=== PATIENT | female | born 1950 | race Caucasian/White ===

== ENCOUNTER 2016-05-28 11:50 | Outpatient (CLI) | payer OTHER ==
[2016-05-28] MEDS ORDERED: FLUMAZENIL 0.5 MG/5 ML MDV IVP ONE (12:28)
[2016-05-28] MEDS ORDERED: MIDAZOLAM 2 MG/2 ML VIAL ONE ×2 (12:28→13:10)
--- NOTE | 2016-05-28 15:01 | MR ---
MRI of the Lumbar Spine (Without Contrast) with intravenous moderate conscious sedation Clinical Indications: Low back pain with radiculopathy, M54.16, left L5-S1 radiculopathy. Intravenous moderate sedation: After witnessed informed consent was obtained. Moderate sedation was p erformed with the uneventful intravenous administration of Versed 4.5 mg over 38 minutes, [id number] hours, under the supervision of the radiology nurse and consenting radiologist. No immediate complica tions. Technique: Sagittal and axial T1 and T2 and sagittal STIR MR sequences of the lumbar spine without co ntrast. Axial imaging from T11 through S1. Findings: Lumbar vertebral bodies are of normal height without compression fractures. Conus medulla ris appears normal and ends at L1. T11-T12: Moderate degenerative disk disease with ventral osteophytes. No disk herniation or stenosis. T12-L1: Moderate degenerative disk disease with ventral osteophytes. No disk herniation or stenosis.. L1-L2: Moderate degenerative disk disease with a right paramedian 3-mm disk herniation, extrusion, mi grating cephalad and mild bilateral facet arthropathy resulting in mild central canal stenosis withou t neural foraminal stenosis. L2-L3: Moderate degenerative disk disease with circumferential disk bulge and osteophytes resulting i n minimal central canal stenosis without neural foraminal stenosis. L3-L4: Moderate degenerative disk disease with Schmorl's nodes, broad-based central 3-mm disk herniat ion, protrusion, slightly more prominent towards the right and mild bilateral facet arthropathy resul ting in mild central canal stenosis, and slight dorsal displacement of the right L4 nerve root. No ne ural foraminal stenosis. L4-L5: Severe degenerative disk disease with severe loss of disk height, previous posterior laminecto my, residual circumferential osteophytes and mild bilateral facet arthropathy resulting in mild bilat eral neural foraminal stenosis without central canal stenosis. L5-S1: No disk herniation or stenosis. Impression: 1. L4-L5: Previous posterior laminectomy with severe degenerative disk disease and circumferential os teophytes resulting in mild bilateral neural foraminal stenosis without central canal stenosis. 2. L5-S1: No disk herniation or stenosis. 3. L1-L2: Right paramedian disk herniation, extrusion, and mild bilateral facet arthropathy resulting in mild central canal stenosis 4. L3-L4: Broad-based disk herniation, protrusion, and mild bilateral facet arthropathy resulting in mild central canal stenosis. 5. Please see above findings at specific disk levels.
== END 2016-05-28 14:31 | disposition home or self-care (01) ==
LOC: FIMAGING 11:50
PROVIDERS: ATTEND Physical Medicine & Rehabilitation
DX: M51.16 Intervertebral disc disorders with radiculopathy, lumbar region (principal); M54.5 Low back pain; M79.671 Pain in right foot
CPT/HCPCS: 72148; 99152; 99513; J2250

== ENCOUNTER 2016-05-31 10:55 | Emergency (ER) | payer OTHER ==
--- NOTE | 2016-05-31 11:47 | EDPHY ---
H & P Stated Complaint: 1 wk transient floaters in r eye Time Seen by Provider: 05/31/16 11:09 HPI/ROS: CHIEF COMPLAINT: right eye floaters HISTORY OF PRESENT ILLNESS: 65-year-old female presents to the emergency department complaining of floaters in her right eye for the last 3 days. Patient states today prior to arrival she had flashes of lights in her right eye lateral periphery and dark flashes. These lasted for about 30 minutes, she continues with floaters in this eye. Patient denies previous symptoms like this. He denies blurred vision, no headache. Patient reports chronic neck pain with known degenerative disc disease, she states her right-sided neck pain has been worse in the last couple months as well as the chronic tingling in her both arms down to her pinky finger in ulnar nerve distribution. She denies arm weakness. Patient denies dizziness, lightheadedness, confusion. Normal gait. No nausea, vomiting or diarrhea, no chest pain or shortness of breath. REVIEW OF SYSTEMS: A comprehensive 10 point review of systems is otherwise negative aside from elements mentioned in the history of present illness. Source: Patient Exam Limitations: No limitations - Personal History Current Tetanus/Diphtheria Vaccine: Yes - Medical/Surgical History Hx Asthma: No Hx Chronic Respiratory Disease: No Hx Diabetes: No Hx Cardiac Disease: No Hx Renal Disease: No Hx Cirrhosis: No Hx Alcoholism: No Hx HIV/AIDS: No Hx Splenectomy or Spleen Trauma: No Other PMH: PSH: cysts removal x3; L4-L5 discectomy x2; ectopic preg; ; liu. PMH: kidney stones; fatty liver; pre DM; chronic back pain - Social History Smoking Status: Never smoked - Physical Exam Exam: Physical Exam Gen: Alert and Oriented, NAD HEENT: PERRL, moist mucous membranes Visual Acuity: Noted from Nurse's notes. Pupils: PERRLA, EOMI, no nystagmus, no trauma, no injection. Lids: No edema or swelling Skin: No proptosis, no periorbital erythema or swelling, no vesicles Conjunctivae: Not injected, not icteric, no discharge Anterior chamber: Normal, no hyphema or hypopyon NECK: no meningismus CV: regular rate and regular rhythm PULM: CTAB, no wheezes ABDOMEN: soft, non tender to palpation, BS present BACK: No CVA tenderness NEURO: Neurologically grossly intact, 5/5 strength bilateral upper extremities , negative Potter's EXTREMITIES: normal appearing SKIN: no rash or break in skin on exposed skin PSYCH: answers questions appropriately. Constitutional: Initial Vital Signs Temperature (C) 36.6 C 05/31/16 11:04 Heart Rate 86 05/31/16 11:04 Respiratory Rate 16 05/31/16 11:04 Blood Pressure 115/84 H 05/31/16 11:04 O2 Sat (%) 95 05/31/16 11:04 O2 Delivery Mode Room Air Allergies/Adverse Reactions: celecoxib [From Celebrex] Allergy (Verified 10/23/15 14:16) Other-Enter Comments clarithromycin [From Biaxin] Allergy (Verified 10/23/15 14:16) clindamycin HCl [From Cleocin] Allergy (Verified 10/23/15 14:16) Other-Enter Comments Clindamycin Palmitate [From Cleocin] Allergy (Verified 10/23/15 14:16) Other-Enter Comments clindamycin phosphate [From Cleocin] Allergy (Verified 10/23/15 14:16) Other-Enter Comments eszopiclone [From Lunesta] Allergy (Verified 10/23/15 14:16) Home Medications: Medication Instructions Recorded Levothyroxine [Synthroid 125 mcg 125 mcg PO DAILY@0600 07/24/12 (*)] Estradiol 5 mg TUBE DAILY 05/27/16 Progesterone 200 mg PO DAILY 05/27/16 Testosterone 1.2 mg TUBE DAILY 05/27/16 Medical Decision Making - Diagnostics Imaging: Study: Ultrasound of the: Right eye Indication: Floaters Right ocular ultrasound performed by la. No evidence of retinal detachment, there is evidence of vitreous detachment. CT angio neck- Impression: 1. Normal cervical arteries. No source for visual issues identified. 2. Multilevel cervical spondylosis with central and foraminal stenosis. Note: All stenoses are calculated using NASCET Criteria. Results called to Dr. Raymundo General information for patients regarding this examination can be found at [email or web address]. If you have questions or comments about this report, please contact me at (hospital) or [phone] (cell). Dictated By: Cheko Umaña MD ED Course/Re-evaluation: IV established, i-STAT obtained, CT angio neck ordered. Ultrasound of the right eye done by me shows no retinal detachment, possible vitreous detachment. Otherwise exam is normal. Patient with cervical spine tenderness to palpation , tenderness to paraspinal right-sided neck. CT angio neck shows normal vessels, patient has multilevel cervical spondylosis with central and foraminal stenosis that explains her neck pain and arm numbness. Her visual floaters are likely due to the vitreous detachment. 225pm- I spoke with Dr. Stiven Liu with ophthalmology. He will see the patient in the office on Thursday, she is to call Thursday to schedule this appointment. She is to call his office if she has any worsening symptoms and she will be seen sooner. The patient is comfortable with this plan being discharged. She is to follow up outpatient with her primary care doctor for MRI of her brain if the scout sniper does not see a explanation for her symptoms. She is given return precautions to return for any new symptoms or concerns. Differential Diagnosis: Diagnosis considered but not limited to vitreous detachment, retinal detachment , vertebral artery dissection, cervical stenosis, CVA. - Data Points Laboratory Results: 05/31/16 11:55 POC Hgb 17.3 H gm/dL (12.3-15.9) POC Hct 51 H % (35.5-47.5) POC Sodium 142 mEq/L (134-144) POC Potassium 3.8 mEq/L (3.3-5.0) POC Chloride 108 mEq/L (96-108) POC BUN 18 mg/dL (7-23) POC Creatinine 0.6 mg/dL (0.6-1.2) POC Glucose 93 mg/dL (70-100) Point of Care Test Results: 05/31/16 11:55 POC Sodium 142 POC Potassium 3.8 POC Chloride 108 POC BUN 18 POC Creatinine 0.6 POC Glucose 93 Departure - Departure Disposition: Home, Routine, Self-Care Clinical Impression: Vitreous floaters of right eye Condition: Good Instructions: Visual Floaters (ED) Additional Instructions: Call Dr. Liu's office Thursday to schedule appointment to be seen on Thursday. Call his office sooner for any worsening symptoms, they will page him and he will be able to see you sooner. Referrals: Stiven Liu MD [Medical Doctor] - As per Instructions (Cross [employer] Track [employer] Coach on-call )
[2016-05-31] MEDS ORDERED: IOPAMIDOL (ISOVUE 370) 100 ML BTL IV ONE (12:36)
--- NOTE | 2016-05-31 14:16 | CT ---
CT Angiography of the Neck (With Contrast) Clinical Indications: Possible stroke, chronic right neck pain, bilateral arm tingling, right vision symptoms Technique: During IV administration of 100 mL of Isovue-370 intravenously, helical multidetector data acquisition was obtained from the upper thorax cephalad through the skull base. The thinly collimate d data were manipulated in multiple projections on the 3D computer workstation by the radiologist. D ose reduction techniques were utilized. Findings: The common carotid arteries, carotid bifurcations and internal carotid arteries are widely patent. There is no evidence for plaque, stenosis or dissection. The cavernous carotid arteries, dis lionel internal carotid arteries, A1 and both ophthalmic arteries are widely patent. Both vertebral sebastian breana are widely patent into the basilar artery which appears normal and terminates into the right pos terior cerebral artery and both superior cerebellar arteries. The left posterior cerebral artery has its origin from the left internal carotid artery via a large posterior communicating artery. No evide nce of occlusion, hemodynamically significant stenosis, dissection or atherosclerotic plaque. There i s degenerative cervical disk disease between C3 and C7 with calcifications of the posterior longitudi nal ligament present between C3 and C6 (large between C4 and C6) and foraminal stenosis, severe on th e right at C6-C7,C5-C6 and C4-C5. Impression: 1. Normal cervical arteries. No source for visual issues identified. 2. Multilevel cervical spondylosis with central and foraminal stenosis. Note: All stenoses are calculated using NASCET Criteria. Results called to Dr. Raymundo General information for patients regarding this examination can be found at [email or web address]. If you have questions or comments about this report, please contact me at [phone] (hospital) or [phone] (cell).
[2016-05-31 14:52] VITALS: BP 132/79; PULSE 80; RESP 14; TEMP 97.5; O2SAT 95
== END 2016-05-31 14:52 | disposition home or self-care (01) ==
DX: H43.391 Other vitreous opacities, right eye (principal)
CPT/HCPCS: 70498; 99285; Q9967; 82947-QW

== ENCOUNTER → 2016-09-29 | Outpatient (CLI) | payer OTHER ==
[~2016-09-29] MED LIST: FLUMAZENIL 0.5 MG/5 ML MDV IVP ONE; MIDAZOLAM 2 MG/2 ML VIAL ONE
== END ==
LOC: FIMAGING 14:21
PROVIDERS: ATTEND Physical Medicine & Rehabilitation
DX: M50.30 Other cervical disc degeneration, unspecified cervical region (principal); M99.71 Connective tissue and disc stenosis of intervertebral foramina of cervical region; M50.20 Other cervical disc displacement, unspecified cervical region; M51.24 Other intervertebral disc displacement, thoracic region
CPT/HCPCS: 72141; J2250

== ENCOUNTER 2016-12-17 23:47 | Emergency (ER) | payer OTHER ==
[2016-12-18] MEDS ORDERED: NS 1,000 ML IV ONE ×2 (00:20)
[2016-12-18 00:33] LABS: COLOR PALE YELLOW; LEUKOCYTE ESTERASE,URINE NEGATIVE (NEGATIVE); NITRITE,URINE NEGATIVE (NEGATIVE)
[2016-12-18 00:33] LABS: % IMMATURE GRANULYOCYTES 0.6 % (0.0-1.1); ABSOLUTE IMMATURE GRANULOCYTES 0.05 10^3/uL (0.00-0.10); ADD DIFF? NO; ADD MORPH? NO; ADD SCAN? NO; ATYPICAL LYMPHOCYTE FLAG 0 (0-99); FRAGMENT RBC FLAG 0 (0-99); HEMATOCRIT 45.2 % (38.0-47.0); HEMOGLOBIN 14.9 g/dL (12.6-16.3); LEFT SHIFT FLG 0 (0-99); LIPEMIA HEMOLYSIS FLAG 80 (0-99); MEAN CELL HEMOGLOBIN 30.8 pg (27.9-34.1); MEAN CELL VOLUME 93.4 fL (81.5-99.8); MEAN PLATELET VOLUME 10.4 fL (8.7-11.7); PLATELET CLUMPS FLAG 0 (0-99); PLATELET COUNT 194 10^3/uL (150-400); RED BLOOD CELL COUNT 4.84 10^6/uL (4.18-5.33); RED CELL DISTRIBUTION WIDTH 12.4 % (11.5-15.2)
[2016-12-18 00:56] LABS: ANION GAP 14 mEq/L (8-16); CALCIUM 9.7 mg/dL (8.5-10.4); CARBON DIOXIDE 19 mEq/l (22-31); CHLORIDE 107 mEq/L (97-110); CREATININE 0.7 mg/dL (0.6-1.0); GLOMERULAR FILTRATION RATE > 60; GLUCOSE 101 mg/dL (70-100); POTASSIUM 4.2 mEq/L (3.5-5.2); SODIUM 140 mEq/L (134-144)
--- NOTE | 2016-12-18 01:33 | EDPHY ---
H & P Stated Complaint: chills, suprapubic pain, currently being treated for UTI Time Seen by Provider: 12/18/16 00:06 HPI/ROS: HPI The patient presents with crampy, left-sided, suprapubic abdominal pain which has been present for weeks but became worse over the last several days. She saw her primary care doctor 3 days ago and was diagnosed with the urinary tract infection based on UA. She was started on Bactrim for this. She saw [facility] today and is being monitored given she has a history of kidney stone. She says she feels generally achy and that her body hurts all over. She denies any fevers. She did have an episode of diarrhea today. She has a history of frequent urinary tract infection, 3 in the last 1 year she thinks. She was admitted to the hospital for UTI with sepsis in February of 2015. His urine culture grew out pansensitive E coli. She does not have any nausea or vomiting. REVIEW OF SYSTEMS Constitutional: No fever, no chills. Eyes: No discharge. ENT: No sore throat. Cardiovascular: No chest pain, no palpitations. Respiratory: No cough, no shortness of breath. Gastrointestinal: See HPI Genitourinary: No hematuria. Musculoskeletal: No back pain. Skin: No rashes. Neurological: No headache. PMHx: Urosepsis, history of kidney stones Soc Hx: Housed with PHYSICAL General Appearance: Alert, no distress Eyes: Pupils equal and round no pallor or injection ENT, Mouth: Mucous membranes moist Respiratory: There are no retractions, lungs are clear to auscultation Cardiovascular: Regular rate and rhythm Gastrointestinal: Abdomen is soft and non-tender, no masses, bowel sounds normal Neurological: A&O, moves all extremities Skin: Warm and dry, no rashes Musculoskeletal: Neck is supple non tender Extremities: symmetrical, full range of motion Psychiatric: Patient is oriented X 3, there is no agitation Source: Patient, Old records Exam Limitations: No limitations - Personal History Current Tetanus/Diphtheria Vaccine: Yes - Medical/Surgical History Hx Asthma: No Hx Chronic Respiratory Disease: No Hx Diabetes: No Hx Cardiac Disease: No Hx Renal Disease: No Hx Cirrhosis: No Hx Alcoholism: No Hx HIV/AIDS: No Hx Splenectomy or Spleen Trauma: No Other PMH: PSH: cysts removal x3; L4-L5 discectomy x2; ectopic preg; ; liu. PMH: kidney stones; fatty liver; pre DM; chronic back pain - Social History Smoking Status: Never smoked Constitutional: Initial Vital Signs Temperature (C) 36.9 C 12/17/16 23:49 Heart Rate 103 H 12/17/16 23:49 Respiratory Rate 16 12/17/16 23:49 Blood Pressure 148/77 H 12/17/16 23:49 O2 Sat (%) 94 12/17/16 23:49 O2 Delivery Mode Room Air Allergies/Adverse Reactions: celecoxib [From Celebrex] Allergy (Verified 12/17/16 23:52) Other-Enter Comments clarithromycin [From Biaxin] Allergy (Verified 12/17/16 23:52) clindamycin HCl [From Cleocin] Allergy (Verified 12/17/16 23:52) Other-Enter Comments Clindamycin Palmitate [From Cleocin] Allergy (Verified 12/17/16 23:52) Other-Enter Comments clindamycin phosphate [From Cleocin] Allergy (Verified 12/17/16 23:52) Other-Enter Comments Home Medications: Medication Instructions Recorded Levothyroxine [Synthroid 125 mcg 125 mcg PO DAILY@0600 07/24/12 (*)] ALPRAZolam [Xanax 0.25 MG (*)] 0.25 mg PO TID 12/17/16 Pantoprazole Sodium [Protonix] 20 mg PO 12/17/16 Sulfamethox/Tmp 800/160 mg 1 tab PO BID 12/17/16 [Bactrim Ds] Medical Decision Making - Diagnostics Imaging Results: Renal ultrasound demonstrates no left-sided hydronephrosis with ureteral jet present, no obvious kidney stones, there are right-sided kidney stones seen, discussed with Dr. Marquez of Radiology. Imaging: Discussed imaging studies w/ call worker Radiologist Differential Diagnosis: Assessment: This is a 66-year-old female with history of frequent UTIs and urosepsis, kidney stone, who presents with several days of worsening is lower abdominal pains, diagnosed with urinary tract infection is several days ago and started on Bactrim. On exam, she is slightly tachycardic, otherwise well appearing with benign abdominal exam and no CVA tenderness. Differential diagnosis: Includes pyelonephritis, cystitis, sepsis, ureterolithiasis causing obstruction, less likely diverticulitis. ED course: Basic labs were checked and were unremarkable, she did not have leukocytosis. UA was normal, however she may have a partially treated urinary tract infection. She was given 2 L of IV fluids for presumed volume depletion. She was given a dose of ceftriaxone for presumed urinary tract infection. Ultrasound was performed and did not show any hydronephrosis making obstructive UTI unlikely. She was able to tolerate fluids and felt well enough to go home with stable vital signs. She was offered admission, however declined. Discharge plan: Plan for discharge home with PMD follow-up in the next 1-2 days. As she is to return to the ER if she is worse in any way given her history of sepsis from urinary tract infection. I will keep her on Bactrim as she has had 3 days of this thus far and previous urine culture grew out pansensitive E coli. - Data Points Laboratory Results: Laboratory Results 12/18/16 00:27 12/18/16 00:27 12/18/16 12/18/16 12/18/16 00:27 00:27 00:08 WBC 9.06 10^3/uL 10^3/uL (3.80-9.50) RBC 4.84 10^6/uL 10^6/uL (4.18-5.33) Hgb 14.9 g/dL g/dL (12.6-16.3) Hct 45.2 % % (38.0-47.0) MCV 93.4 fL fL (81.5-99.8) MCH 30.8 pg pg (27.9-34.1) MCHC 33.0 g/dL g/dL (32.4-36.7) RDW 12.4 % % (11.5-15.2) Plt Count 194 10^3/uL 10^3/uL (150-400) MPV 10.4 fL fL (8.7-11.7) Neut % (Auto) 85.0 % H % (39.3-74.2) Lymph % (Auto) 5.3 % L % (15.0-45.0) [place] % (Auto) 8.5 % % (4.5-13.0) Eos % (Auto) 0.3 % L % (0.6-7.6) Baso % (Auto) 0.3 % % (0.3-1.7) Nucleat RBC Rel Count 0.0 % % (0.0-0.2) Absolute Neuts (auto) 7.70 10^3/uL H 10^3/uL (1.70-6.50) Absolute Lymphs (auto) 0.48 10^3/uL L 10^3/uL (1.00-3.00) Absolute Monos (auto) 0.77 10^3/uL 10^3/uL (0.30-0.80) Absolute Eos (auto) 0.03 10^3/uL 10^3/uL (0.03-0.40) Absolute Basos (auto) 0.03 10^3/uL 10^3/uL (0.02-0.10) Absolute Nucleated RBC 0.00 10^3/uL 10^3/uL (0-0.01) Immature Gran % 0.6 % % (0.0-1.1) Immature Gran # 0.05 10^3/uL 10^3/uL (0.00-0.10) Sodium 140 mEq/L mEq/L (134-144) Potassium 4.2 mEq/L mEq/L (3.5-5.2) Chloride 107 mEq/L mEq/L (97-110) Carbon Dioxide 19 mEq/l L mEq/l (22-31) Anion Gap 14 mEq/L mEq/L (8-16) BUN 15 mg/dL mg/dL (7-23) Creatinine 0.7 mg/dL mg/dL (0.6-1.0) Estimated GFR > 60 Glucose 101 mg/dL H mg/dL (70-100) Calcium 9.7 mg/dL mg/dL (8.5-10.4) Urine Color PALE YELLOW Urine Appearance CLEAR Urine pH 7.0 (5.0-7.5) Ur Specific [place] 1.009 (1.002-1.030) Urine Protein NEGATIVE (NEGATIVE) Urine Ketones NEGATIVE (NEGATIVE) Urine Blood NEGATIVE (NEGATIVE) Urine Nitrate NEGATIVE (NEGATIVE) Urine Bilirubin NEGATIVE (NEGATIVE) Urine Urobilinogen NEGATIVE EU EU (0.2-1.0) Ur Leukocyte Esterase NEGATIVE (NEGATIVE) Urine Glucose NEGATIVE (NEGATIVE) Medications Given: Discontinued Medications Sodium Chloride (Ns) 1,000 mls @ 0 mls/hr IV ONCE ONE; Wide Open PRN Reason: Protocol Stop: 12/18/16 00:21 Last Admin: 12/18/16 00:30 Dose: 1,000 mls Sodium Chloride (Ns) 1,000 mls @ 0 mls/hr IV ONCE ONE; Wide Open PRN Reason: Protocol Stop: 12/18/16 00:21 Last Admin: 12/18/16 01:02 Dose: 1,000 mls Ceftriaxone Sodium/Dextrose (Rocephin 1 Gm (Premix)) 50 mls @ 100 mls/hr IV EDNOW ONE PRN Reason: Protocol Stop: 12/18/16 00:51 Last Admin: 12/18/16 00:30 Dose: 50 mls Departure - Departure Disposition: Home, Routine, Self-Care Clinical Impression: UTI (urinary tract infection) Qualifiers: Urinary tract infection type: acute cystitis Hematuria presence: without hematuria Qualified Code(s): N30.00 - Acute cystitis without hematuria Abdominal pain Qualifiers: Abdominal location: unspecified location Qualified Code(s): R10.9 - Unspecified abdominal pain Condition: Good Instructions: Urinary Tract Infection in Women (ED) Additional Instructions: You should return to the emergency room if your worse in any way. Otherwise, continue taking the Bactrim and please follow-up with your doctor in the next 1- 2 days. Referrals: Mindy Sebastian MD [Primary Care Provider] - As per Instructions
[2016-12-18 03:40] VITALS: BP 106/71; PULSE 88; RESP 18; TEMP 97.7; O2SAT 93
== END 2016-12-18 03:42 | disposition home or self-care (01) ==
DX: N30.00 Acute cystitis without hematuria (principal); E86.9 Volume depletion, unspecified
CPT/HCPCS: 76770; 96361; 96365; 99285; J0696

== ENCOUNTER 2016-12-19 02:02 | Emergency (ER) | payer OTHER ==
[2016-12-19 03:09] LABS: COLOR YELLOW; LEUKOCYTE ESTERASE,URINE NEGATIVE (NEGATIVE); NITRITE,URINE NEGATIVE (NEGATIVE)
[2016-12-19] MEDS ORDERED: NS 1,000 ML IV ONE (03:58)
[2016-12-19 04:19] LABS: % IMMATURE GRANULYOCYTES 0.4 % (0.0-1.1); ABSOLUTE IMMATURE GRANULOCYTES 0.03 10^3/uL (0.00-0.10); ADD DIFF? NO; ADD MORPH? NO; ADD SCAN? NO; ATYPICAL LYMPHOCYTE FLAG 0 (0-99); FRAGMENT RBC FLAG 0 (0-99); HEMATOCRIT 43.4 % (38.0-47.0); HEMOGLOBIN 14.5 g/dL (12.6-16.3); LEFT SHIFT FLG 0 (0-99); LIPEMIA HEMOLYSIS FLAG 80 (0-99); MEAN CELL HEMOGLOBIN 30.9 pg (27.9-34.1); MEAN CELL HEMOGLOBIN CONCENTR. 33.4 g/dL (32.4-36.7); MEAN CELL VOLUME 92.5 fL (81.5-99.8); MEAN PLATELET VOLUME 10.4 fL (8.7-11.7); PLATELET CLUMPS FLAG 0 (0-99); PLATELET COUNT 169 10^3/uL (150-400); RED BLOOD CELL COUNT 4.69 10^6/uL (4.18-5.33); RED CELL DISTRIBUTION WIDTH 12.5 % (11.5-15.2)
[2016-12-19 04:36] LABS: ALANINE AMINOTRANSFERASE 192 IU/L (9-52); ALBUMIN 4.1 g/dL (3.5-5.0); ALKALINE PHOSPHATASE 104 IU/L (38-126); ANION GAP 12 mEq/L (8-16); ASPARTATE AMINOTRANSFERASE 157 IU/L (14-46); BILIRUBIN,TOTAL 0.6 mg/dL (0.1-1.4); CALCIUM 9.4 mg/dL (8.5-10.4); CARBON DIOXIDE 20 mEq/l (22-31); CHLORIDE 107 mEq/L (97-110); CREATININE 0.7 mg/dL (0.6-1.0); GLOMERULAR FILTRATION RATE > 60; GLUCOSE 108 mg/dL (70-100); POTASSIUM 4.2 mEq/L (3.5-5.2); SODIUM 139 mEq/L (134-144); TOTAL PROTEIN 6.8 g/dL (6.3-8.2)
--- NOTE | 2016-12-19 05:48 | EDPHY ---
H & P Stated Complaint: seen recently for uti returns for fever at pcp request HPI/ROS: HPI The patient presents with fever and general malaise which has been intermittent for the last several days. She was instructed to come to the hospital if her fever was greater than 101.5 which it was just prior to arrival. Currently, her symptoms have improved spontaneously. She is currently being treated for urinary tract infection with initially Bactrim for 2 days then switched to ciprofloxacin today. She has a urine culture from 12/16 which demonstrated Klebsiella which is pansensitive. I saw her in the emergency room yesterday for the same complaint. She was given fluids and a dose of ceftriaxone with improvement in her symptoms. She had a renal ultrasound which did not demonstrate any obstructive uropathy.. REVIEW OF SYSTEMS Constitutional: Positive for fever Eyes: No discharge. ENT: No sore throat. Cardiovascular: No chest pain, no palpitations. Respiratory: No cough, no shortness of breath. Gastrointestinal: No abdominal pain, no vomiting. Genitourinary: No hematuria. Musculoskeletal: No back pain. Skin: No rashes. Neurological: No headache. PMHx: Status post cholecystectomy, history of fatty liver, history of kidney stones Soc Hx: Lives at home with family PHYSICAL General Appearance: Alert, no distress Eyes: Pupils equal and round no pallor or injection ENT, Mouth: Mucous membranes moist Respiratory: There are no retractions, lungs are clear to auscultation Cardiovascular: Regular rate and rhythm Gastrointestinal: Abdomen is soft and non-tender, no masses, bowel sounds normal, no CVA tenderness Neurological: A&O, moves all extremities Skin: Warm and dry, no rashes Musculoskeletal: Neck is supple non tender Extremities: symmetrical, full range of motion Psychiatric: Patient is oriented X 3, there is no agitation Source: Patient Exam Limitations: No limitations - Personal History Current Tetanus/Diphtheria Vaccine: Unsure Current Tetanus Diphtheria and Acellular Pertussis (TDAP): Unsure - Medical/Surgical History Hx Asthma: No Hx Chronic Respiratory Disease: No Hx Diabetes: No Hx Cardiac Disease: No Hx Renal Disease: No Hx Cirrhosis: No Hx Alcoholism: No Hx HIV/AIDS: No Hx Splenectomy or Spleen Trauma: No Other PMH: PSH: cysts removal x3; L4-L5 discectomy x2; ectopic preg; ; liu. PMH: kidney stones; fatty liver; pre DM; chronic back pain - Social History Smoking Status: Never smoked Constitutional: Initial Vital Signs Temperature (C) 37.9 C 12/19/16 02:08 Heart Rate 100 12/19/16 02:08 Respiratory Rate 18 12/19/16 02:08 Blood Pressure 110/71 12/19/16 02:08 O2 Sat (%) 93 12/19/16 02:08 O2 Delivery Mode Room Air Allergies/Adverse Reactions: celecoxib [From Celebrex] Allergy (Verified 12/17/16 23:52) Other-Enter Comments clarithromycin [From Biaxin] Allergy (Verified 12/17/16 23:52) clindamycin HCl [From Cleocin] Allergy (Verified 12/17/16 23:52) Other-Enter Comments Clindamycin Palmitate [From Cleocin] Allergy (Verified 12/17/16 23:52) Other-Enter Comments clindamycin phosphate [From Cleocin] Allergy (Verified 12/17/16 23:52) Other-Enter Comments Home Medications: Medication Instructions Recorded Levothyroxine [Synthroid 125 mcg 125 mcg PO DAILY@0600 07/24/12 (*)] ALPRAZolam [Xanax 0.25 MG (*)] 0.25 mg PO TID 12/17/16 Ciprofloxacin [Cipro] 500 mg PO 12/19/16 Zofran Odt 4 mg (*) 12/19/16 Medical Decision Making Differential Diagnosis: This is a 66-year-old female with history of UTI who presents with fever today to 101.5. His she is currently being treated for current urinary tract infection with Bactrim though was switched to ciprofloxacin yesterday by her urologist. She has had about 3 days of antibiotic treatment. She was seen in the emergency room yesterday by me and given a dose of ceftriaxone for urinary tract infection. Renal ultrasound did not demonstrate any signs of obstructive uropathy. Now, she is feeling quite well and denies any complaints including nausea, vomiting, pain, fever. Urine culture from 12/16 has returned growing pansensitive Klebsiella. Differential diagnosis includes cystitis, pyelonephritis, less likely ureterolithiasis. In the emergency room, patient's labs were checked and did reveal elevated AST and ALT, change from labs yesterday. Patient does have history of fatty liver and is followed by GI. She says she occasionally has a transaminitis though it is of uncertain etiology. She is status post cholecystectomy and does not have any right upper quadrant abdominal pain. She does not have a leukocytosis and her UA is normal. I feel she likely has a partially treated urinary tract infection at this point. She was given IV fluids and a dose of ceftriaxone here. She was observed for several hours and felt well the entire time with normal vital signs. I have offered her admission to the hospital for ongoing IV antibiotics, however she declined. She would like to go home and will take ciprofloxacin for her urinary tract infection. She is aware of return precautions. - Data Points Laboratory Results: Laboratory Results 12/19/16 03:45 12/19/16 03:45 Medications Given: Discontinued Medications Ceftriaxone Sodium/Dextrose (Rocephin 1 Gm (Premix)) 50 mls @ 100 mls/hr IV EDNOW ONE PRN Reason: Protocol Stop: 12/19/16 04:27 Last Admin: 12/19/16 04:05 Dose: 50 mls Sodium Chloride (Ns) 1,000 mls @ 0 mls/hr IV EDNOW ONE; Wide Open PRN Reason: Protocol Stop: 12/19/16 03:59 Last Admin: 12/19/16 04:04 Dose: 1,000 mls Departure - Departure Disposition: Home, Routine, Self-Care Clinical Impression: Transaminitis UTI (urinary tract infection) Qualifiers: Urinary tract infection type: site unspecified Hematuria presence: without hematuria Qualified Code(s): N39.0 - Urinary tract infection, site not specified Condition: Good Instructions: Urinary Tract Infection in Women (ED) Additional Instructions: Please make sure to drink plenty of fluids. You should take her antibiotic as prescribed. Return to the ER if your worse in any way. Referrals: Mindy Sebastian MD [Primary Care Provider] - As per Instructions
[2016-12-19 06:25] VITALS: BP 109/53; PULSE 75; RESP 16; TEMP 98.4; O2SAT 94
== END 2016-12-19 06:25 | disposition home or self-care (01) ==
DX: N39.0 Urinary tract infection, site not specified (principal); R74.0 Nonspecific elevation of levels of transaminase and lactic acid dehydrogenase [LDH]; E86.9 Volume depletion, unspecified
CPT/HCPCS: 96365; 99284; J0696

== ENCOUNTER → 2017-02-27 | Outpatient (CLI) | payer OTHER | LOC: FIMAGING 10:45 | PROVIDERS: ATTEND Internal Medicine | DX: Z12.31 Encounter for screening mammogram for malignant neoplasm of breast (principal) | CPT/HCPCS: G0202 ==

== ENCOUNTER 2018-05-05 19:35 | Observation (INO) | payer OTHER ==
--- NOTE | 2018-05-05 19:39 | EDPHY ---
H & P Time Seen by Provider: 05/05/18 19:38 - Medical/Surgical History Hx Asthma: No Hx Chronic Respiratory Disease: No Hx Diabetes: Yes Hx Cardiac Disease: No Hx Renal Disease: No Hx Cirrhosis: No Hx Alcoholism: No Hx HIV/AIDS: No Hx Splenectomy or Spleen Trauma: No Other PMH: PSH: cysts removal x3; L4-L5 discectomy x2; ectopic preg; ; liu. PMH: kidney stones; fatty liver; pre DM; chronic back pain - Social History Smoking Status: Never smoked Constitutional: Initial Vital Signs Temperature (C) 36.5 C 05/05/18 19:40 Heart Rate 85 05/05/18 19:40 Respiratory Rate 16 05/05/18 19:40 Blood Pressure 151/87 H 05/05/18 19:40 O2 Sat (%) 95 05/05/18 19:40 O2 Delivery Mode Room Air Allergies/Adverse Reactions: celecoxib [From Celebrex] Allergy (Verified 05/05/18 19:49) Other-Enter Comments clarithromycin [From Biaxin] Allergy (Verified 05/05/18 19:49) clindamycin HCl [From Cleocin] Allergy (Verified 05/05/18 19:49) Other-Enter Comments Clindamycin Palmitate [From Cleocin] Allergy (Verified 05/05/18 19:49) Other-Enter Comments clindamycin phosphate [From Cleocin] Allergy (Verified 05/05/18 19:49) Other-Enter Comments Home Medications: Medication Instructions Recorded Levothyroxine [Synthroid 125 mcg 112 mcg PO DAILY@0600 07/24/12 (*)] ALPRAZolam [Xanax 0.25 MG (*)] 0.125 - 0.25 mg PO HS PRN 12/17/16 Ascorbic Acid [Vitamin C 500 mg 500 - 1,000 mg PO BID 05/05/18 (*)] Cholecalciferol Vit D3 [Vitamin D3 2,000 units PO DAILY 05/05/18 (*)] Ibuprofen [Motrin (*)] 400 - 800 mg PO Q8H PRN 05/05/18 Multivitamins [Multivitamin (*)] 1 each PO DAILY 05/05/18 Pantoprazole Sodium [Protonix 40mg 40 mg PO DAILY PRN 05/05/18 (*)] Medical Decision Making - Diagnostics Imaging Results: Imaging Impressions Chest X-Ray 05/05/18 19:48 Impression: No acute pulmonary disease. Imaging: I viewed and interpreted images myself ED Course/Re-evaluation: CHIEF COMPLAINT: Chest pressure HISTORY OF PRESENT ILLNESS: This patient is a 67 year old female with history of hypothyroid, hyperlipidemia , and GERD. She presents today with chest pressure which has been intermittent since 04/21/18. She describes a pressure sensation beginning around her epigastrium and radiating up into her throat. This is somewhat exacerbated by eating. It is worse at night or when lying down. It is occasionally associated with racing heart and lightheadedness. She initially thought symptoms were related to indigestion, but today she followed up with cardiology at [facility]. She states her evaluation today was inconclusive to rule out heart disease, so she is rather anxious regarding her continued symptoms. She is a nonsmoker. She denies history of heart disease in her immediate family. Ho history of hypertension. She states she has had painful reflux in the past but feels this pressure sensation is different. She denies fever, shortness of breath, nausea, vomiting, diarrhea, or other associated symptoms. REVIEW OF SYSTEMS: A comprehensive 10 system review of systems is otherwise negative aside from elements mentioned in the history of present illness and medical decision making. PHYSICAL EXAM: HR, BP, O2 Sat, RR. Temp noted General Appearance: Alert, well hydrated, appropriate, and non-toxic appearing. Head: Atraumatic without scalp tenderness or obvious injury Eyes: Pupils equal, round, reactive to light and accommodation, EOMI, no trauma , no injection. Ears: Clear bilaterally, no perforation, normal landmarks Nose: Atraumatic, no rhinorrhea, clear. Throat: There is no erythema or exudates, no lesions, normal tonsils, mucus membranes moist. Neck: Supple, 2+ carotid upstroke, nontender, no lymphadenopathy. Respiratory: No retractions, no distress, no wheezes, and no accessory muscle use. Lungs are clear to auscultation bilaterally. Cardiovascular: Regular rate and rhythm, no murmurs, rubs, or gallops. Bilateral carotid, radial, dorsalis pedis, and posterior tibial pulses intact. Good capillary refill all extremities. Gastrointestinal: Abdomen is soft, nontender, non-distended, no masses, no rebound, no guarding, no peritoneal signs. Musculoskeletal: Normal active ROM of all extremities, atraumatic. Neurological: Alert, appropriate, and interactive. The patient has normal DTRs and non-focal cranial nerves, motor, sensory, and cerebellar exam. Skin: No rashes, good turgor, no nodules on palpation. Past medical history: Hypothyroid (levothyroxine). Kidney stones; fatty liver; pre-diabetes mellitus; chronic back pain Past surgical history: Cyst removal x3; L4-L5 discectomy x2; ectopic ; ; cholecystectomy Family history: Noncontributory. Social history: Significant other at bedside. Self-employed. Lives in [place]. DIFFERENTIAL DIAGNOSIS: The differential diagnosis for the patient's chest pain included but was not limited to myocardial ischemia, pulmonary embolus, chest wall pain, pleural inflammation, and pulmonary infectious causes. MEDICAL DECISION MAKIN67 y/o female presents with three week history of chest pressure. Plan for EKG, chest x-ray, labs including CBC, chemistries, troponin, liver, lipase. Plan to administer GI cocktail for symptom relief. The 12 lead EKG was interpreted by myself. See hard copy and/or "[email or web address]" electronic copy for interpretation. Sinus rhythm with PACs. 20:10 Troponin negative at 0.01. Chest x-ray is negative for acute processes. Reviewed laboratory studies. Troponin negative as above, laboratory studies otherwise unremarkable. EKG shows sinus rhythm, no evidence of acute ischemia. Reassessed patient. Discussed imaging and laboratory results. Her discomfort persists following GI cocktail. Offered admission for further evaluation and cardiac workup. The patient is comfortable with this plan and wishes to continue cardiac rule-out. Plan to consult with cardiology. 20:[address] Greene, educational programming director. He will consult during the patients admission. 20:[address] Daugherty, hospitalist. She accepts admission for chest pain. - Data Points Laboratory Results: Laboratory Results 05/05/18 19:58 05/05/18 19:58 05/05/18 05/05/18 05/05/18 20:01 19:58 19:58 WBC 7.00 10^3/uL 10^3/uL (3.80-9.50) RBC 4.96 10^6/uL 10^6/uL (4.18-5.33) Hgb 15.4 g/dL g/dL (12.6-16.3) Hct 45.7 % % (38.0-47.0) MCV 92.1 fL fL (81.5-99.8) MCH 31.0 pg pg (27.9-34.1) MCHC 33.7 g/dL g/dL (32.4-36.7) RDW 12.4 % % (11.5-15.2) Plt Count 217 10^3/uL 10^3/uL (150-400) MPV 10.5 fL fL (8.7-11.7) Neut % (Auto) 62.8 % % (39.3-74.2) Lymph % (Auto) 26.1 % % (15.0-45.0) [place] % (Auto) 9.7 % % (4.5-13.0) Eos % (Auto) 1.0 % % (0.6-7.6) Baso % (Auto) 0.3 % % (0.3-1.7) Nucleat RBC Rel Count 0.0 % % (0.0-0.2) Absolute Neuts (auto) 4.39 10^3/uL 10^3/uL (1.70-6.50) Absolute Lymphs (auto) 1.83 10^3/uL 10^3/uL (1.00-3.00) Absolute Monos (auto) 0.68 10^3/uL 10^3/uL (0.30-0.80) Absolute Eos (auto) 0.07 10^3/uL 10^3/uL (0.03-0.40) Absolute Basos (auto) 0.02 10^3/uL 10^3/uL (0.02-0.10) Absolute Nucleated RBC 0.00 10^3/uL 10^3/uL (0-0.01) Immature Gran % 0.1 % % (0.0-1.1) Immature Gran # 0.01 10^3/uL 10^3/uL (0.00-0.10) Sodium 140 mEq/L mEq/L (135-145) Potassium 3.9 mEq/L mEq/L (3.5-5.2) Chloride 108 mEq/L mEq/L (97-110) Carbon Dioxide 24 mEq/l mEq/l (22-31) Anion Gap 8 mEq/L mEq/L (6-14) BUN 13 mg/dL mg/dL (7-23) Creatinine 0.6 mg/dL mg/dL (0.6-1.0) Estimated GFR > 60 Glucose 98 mg/dL mg/dL (70-100) Calcium 9.8 mg/dL mg/dL (8.5-10.4) Total Bilirubin 0.6 mg/dL mg/dL (0.1-1.4) Conjugated Bilirubin 0.2 mg/dL mg/dL (0.0-0.5) Unconjugated Bilirubin 0.4 mg/dL mg/dL (0.0-1.1) AST 29 IU/L IU/L (14-46) ALT 36 IU/L IU/L (9-52) Alkaline Phosphatase 78 IU/L IU/L (38-126) POC Troponin I 0.01 ng/mL ng/mL (0.00-0.08) NT-Pro-B Natriuret Pep 35 pg/mL pg/mL (0-125) Total Protein 7.3 g/dL g/dL (6.3-8.2) Albumin 4.5 g/dL g/dL (3.5-5.0) Lipase 128 IU/L IU/L (23-300) Medications Given: Discontinued Medications Al Hydroxide/Mg Hydroxide (Maalox Susp) 30 ml PO ONCE ONE Stop: 05/05/18 19:50 Last Admin: 05/05/18 19:55 Dose: 30 ml Hyoscyamine Sulfate (Levsin, Hyomax-Sl) 0.25 mg PO ONCE ONE Stop: 05/05/18 19:50 Last Admin: 05/05/18 19:55 Dose: 0.25 mg Lidocaine (Lidocaine 2% Viscous) 15 ml PO ONCE ONE Stop: 05/05/18 19:50 Last Admin: 05/05/18 19:55 Dose: 15 ml Point of Care Test Results: Chemistry 05/05/18 20:01 POC Troponin I 0.01 ng/mL ng/mL (0.00-0.08) Departure - Departure Disposition: [facility] Inpatient Acute Clinical Impression: Chest pain Qualifiers: Chest pain type: other chest pain Qualified Code(s): R07.89 - Other chest pain Condition: Fair Referrals: Mindy Sebastian MD [Primary Care Provider] - As per Instructions Teodoro Greene MD [Medical Doctor] - As per Instructions Report Scribed for: Kelvin Fatima Report Scribed by: Ju Nicole Date of Report: 05/05/18 Time of Report: 20:26
[2018-05-05] MEDS ORDERED: MAG HYDROX/AL HYDROX/SIMETH 30 ML UDCUP PO ONE (19:49)
[2018-05-05] MEDS ORDERED: LIDOCAINE 2% VISCOUS 15 ML UDCUP PO ONE (19:49)
[2018-05-05] MEDS ORDERED: HYOSCYAMINE SULFATE 0.125 MG TAB PO ONE (19:49)
--- NOTE | 2018-05-05 20:06 | CPEKG ---
Test Reason : OPEN Blood Pressure : / mmHG Vent. Rate : 075 BPM Atrial Rate : 074 BPM P-R Int : 164 ms QRS Dur : 087 ms QT Int : 423 ms P-R-T Axes : 069 048 031 degrees QTc Int : 473 ms Sinus rhythm Atrial premature complexes Confirmed by Kelvni Fatima ([id number]) on 05/05/2018 8:06:09 PM Referred By: Confirmed By:Kelvin Fatima
[2018-05-05 20:09] LABS: PLATELET COUNT 217 10^3/uL (150-400)
--- NOTE | 2018-05-05 20:58 | PDGENHP ---
History and Physical History and Physical: Chief complaint: Chest pressure History of present illness: The patient is a 67-year-old female who came to the ED with chest pressure which she has been experiencing for the last 2 weeks. It occurs at rest and with activity. It starts near the mid epigastrium and radiates up the middle of her chest. Severity is moderate. Symptoms last anywhere from 10 min to several hours. Nothing seems to make the symptoms better. Symptoms are slightly worse after eating food and lying down at night. She had seen her PCP Dr. Mindy Sebastian for this and received Protonix, which did not seem to help. Today she had an appointment with Dominik Batitsa nurse practitioner with [facility] who recommended an exercise stress test within a couple days. The patient was increasingly anxious about her chest pressure and came to the ED tonight for further evaluation. Past medical history: Hypothyroidism, prediabetes, hyperlipidemia, hypothyroid , migraines, recurrent UTI, kidney stones. Past surgical history: Cholecystectomy, diskectomy L4-5. Medications: Imitrex, levothyroxine, Protonix, Xanax, multivitamin Allergies: Cleocin Social history: erp specialist certified real estate appraiser. Lives with her boyfriend. Drinks alcohol occasionally -1 to 2 during a month. Never smoker. Does not use drugs. Family history: Alzheimer's disease, colon cancer. Review of systems: 10 point review of systems was conducted and is negative except per HPI Physical exam: Vitals: Reviewed General: The patient is a female who is alert and in no acute distress. HEENT: normocephalic, extraocular movements intact, conjunctivae clear, no lesions on face. Mucous membranes moist. Neck: trachea midline, no visible masses, no external lesions. CV: +S1/S2, RRR, no MRG. Resp: unlabored, CTAB no RRW. Abd: soft and nondistended. Musculoskeletal: Normal muscle tone and bulk. Neuro: cranial nerves II - XII grossly intact. Intact gross motor and sensory function. Psych: appropriate mood/affect. Skin: No pallor. Heme/lymph: No peripheral edema. Labs: WBC 7 hemoglobin 15.4 platelets 217. Troponin I 0.01. ProBNP 35. Lipase 128. Sodium 140 potassium 3.9 chloride 108 CO2 24 BUN 13 creatinine 0.6 glucose 98. Other Data: EKG: Normal sinus rhythm, rate 75, several PACs. T-wave flattening septal and inferolateral leads. Personally interpreted. Chest x-ray: No acute cardiopulmonary process. Impression and plan: Chest pressure at rest Anxiety GERD Prediabetes Overweight Hyperlipidemia Hypothyroidism Migraines -exercise stress test in a.m. -monitor on telemetry. -Trend troponin. -prn analgesics. -received ASA in ED. -Continue home meds. -VTE ppx - ambulatory. -Observation status. -Full code.
[2018-05-05] MEDS ORDERED: NITROGLYCERIN 0.4 MG BTL SL PRN (21:05)
[2018-05-05] MEDS ORDERED: ACETAMINOPHEN 325 MG TAB PO PRN (21:05)
[2018-05-05] MEDS ORDERED: ONDANSETRON DISINTEGRATING 4 MG TAB PO PRN (21:05)
[2018-05-05] MEDS ORDERED: MAG HYDROX/AL HYDROX/SIMETH 30 ML UDCUP PO PRN (21:10)
[2018-05-05] MEDS ORDERED: ASPIRIN 325 MG TAB PO ONE (21:32)
[2018-05-05] MEDS ORDERED: PANTOPRAZOLE SODIUM 40 MG TAB PO PRN (21:35)
[2018-05-05] MEDS: ALPRAZolam 0.25 MG TAB PO ONE ×2 (22:26→22:29)
[2018-05-06] MEDS: LEVOTHYROXINE 112 MCG TAB PO SCH (06:40)
[2018-05-06] MEDS ORDERED: REGADENOSON 0.4 MG/5 ML SYR IVP ONE (09:45)
--- NOTE | 2018-05-06 10:45 | PDCARST ---
CAR Stress Test Results Type of Stress Test: Nuclear TM stress test Indication: cp Description of Procedure: After informed consent was obtained, pt was exercised according to Syed Protocol. Monitoring was performed with standard stress hybrid tester electrode placement. Vital signs were monitored according to protocol throughout the procedure. STRESS EKG AND HEMODYNAMIC DATA. Exercise time: 6: 30 min. This is equivalent to: 7.6 METS. Resting heart rate: 68 bpm. Resting blood pressure: 116/70 mmHg. Resting O2 saturation: 95 %. Peak heart rate: 155 bpm. This is 100 % of age predicted maximum heart rate response. Peak blood pressure: 142/80 mmHg. Exercise O2: 94%. Arrhythmias : PACs in rest and recovery. Reason for termination: The test was stopped due to . Symptoms: The patient experienced no typical symptoms of angina during stress or recovery. STRESS TEST ANALYSIS. Baseline ECG: SR with bigeminal PACs. Stress ECG: sinus tach. Rhythm: PACs at baseline and recovery. Blood pressure: normal blood pressure response to exercise. Exercise tolerance: The patient has average exercise tolerance adjusted for age and gender. Symptoms: No exercise induced symptoms. Impression: Stress ECG for ischemia. The Virk Treadmill Score is +1 consistent with intermediate risk. [address] changes appeared in early recovery. This is an equivocal study due to non-diagnostic ECG changes. Conclusion: Await nuclear images.
[2018-05-06] MEDS ORDERED: ALPRAZolam 1 MG TAB PO ONE (16:00)
[2018-05-06] MEDS ORDERED: METOPROLOL TARTRATE 50 MG TAB PO ONE (16:01)
--- NOTE | 2018-05-06 16:09 | HOSPPROG ---
Hospitalist Progress Note Assessment/Plan: 67 yo F w hyperlipidemia, atypical cp cp: stress w some ekg changes in rest, nuclear images w inferlat reveraible defect CT coronary angiogram, cath if + home if neg hyperlipidemia: start statin dispo: pending Subjective: case d/w tomasz tello. ekg and images positive vs artifact Objective: Vital Signs Temp Pulse Resp BP Pulse Ox 36.7 C 65 14 113/69 99 05/06/18 12:37 05/06/18 12:37 05/06/18 12:37 05/06/18 12:37 05/06/18 12:37 05/05/18 05/06/18 05/07/18 05:59 05:59 05:59 Intake Total 100 Balance 100 - Physical Exam Constitutional: no apparent distress, appears nourished Eyes: PERRL, anicteric sclera Ears, Nose, Mouth, Throat: moist mucous membranes, hearing normal Cardiovascular: regular rate and rhythym, no murmur, rub, or gallop, No systolic murmur Respiratory: no respiratory distress, no rales or rhonchi Gastrointestinal: normoactive bowel sounds, soft, non-tender abdomen Genitourinary: No esparza in urethra Skin: warm, normal color Musculoskeletal: full muscle strength, no muscle tenderness Neurologic: AAOx3 ICD10 Worksheet Patient Problems: Problems Problem Status Onset Chest pain Acute Sepsis Acute UTI (urinary tract infection) Acute
[2018-05-06] MEDS: CHOLECALCIFEROL VIT D3 2,000 UNITS TAB/CAP PO SCH (16:59)
[2018-05-06] MEDS: MULTIVITAMINS 1 EACH TAB PO SCH (16:59)
--- NOTE | 2018-05-06 17:14 | ASDISCHSUM ---
Discharge Information Plan Status:Home with No Needs Medically Cleared to Leave:05/05/2018 Discharge Date:05/05/2018 CM D/C Disposition:Home, Routine, Self-Care ADT D/C Disposition: Projected Discharge Date:05/05/2018 Transportation at D/C:Family Discharge Delay Reason: Follow-Up Date:05/05/2018 Discharge Slot: Final Diagnosis: Placement Information Patient Contact Information Contact Name:LEVI Relationship:Other Address: Work Phone: City: [facility] Phone: State/Zip Code: Email: Financial Information Financial Class:Medicare Advantage Plans Primary Plan Desc:[employer] ADV[employer]AGE PLAN Primary Plan Number:[id number] Secondary Plan Desc: Secondary Plan Number: Assessment Information LACE LACE Length of stay for Answers: Less than 1 day current admission Acuity / Level of Answers: No Care: Did the patient have an inpatient admission? Comorbidities - select Answers: Diabetes (uncontrolled or all that apply controlled) Opioid dependence / Chronic pain Other Notes: Hypothyroid; HTN; GERD # of Emergency department Answers: 1-2 visits in the last 6 months Score: 7 Date Signed: 05/06/2018 05:14 PM Electronically Signed By:Rufina Perez RN Intervention Information
[2018-05-06] MEDS ORDERED: ALPRAZolam 0.25 MG TAB PO PRN (19:38)
[2018-05-07] MEDS ORDERED: METOPROLOL TARTRATE 50 MG TAB PO ONE ×2 (06:00→08:30)
[2018-05-07] MEDS: LEVOTHYROXINE 112 MCG TAB PO SCH (08:25)
[2018-05-07] MEDS ORDERED: IOPAMIDOL (ISOVUE-370) 150 ML BTL IV ONE (09:14)
[2018-05-07 11:14] VITALS: BP 107/65
--- NOTE | 2018-05-07 14:46 | ASMTDCNOTE ---
Case Management Discharge Discharge Order Complete? Answers: Yes Patient to Obtain Answers: via Family Medications Transportation Arranged Answers: Family/Friends Discharge Comments Notes: 05/07/2018 Case Management Note Discussed pt during rounds this morning. There are no identified needs from case management. Case Management d/c poc: independent with follow up as directed. Date Signed: 05/07/2018 02:45 PM Electronically Signed By:Rufina Perez RN
[2018-05-07] MEDS: MULTIVITAMINS 1 EACH TAB PO SCH (15:02)
[2018-05-07] MEDS: CHOLECALCIFEROL VIT D3 2,000 UNITS TAB/CAP PO SCH (15:02)
--- NOTE | 2018-05-07 16:04 | GDS ---
DISCHARGE DIAGNOSES: 1. Atypical chest pain, but multiple cardiac risk factors. 2. Untreated dyslipidemia. 3. Prediabetes. PROCEDURES: 1. 05/06/18, nuclear treadmill stress test with a focal area of ischemia in the anteroseptal wall ne ar the left ventricular apex, adjacent to apical thinning or small apical infarct. 2. 05/07/18, coronary CTA which shows trace ostial stenosis of the right coronary artery secondary t o aortic atherosclerosis. BRIEF HISTORY: Please see dictated H and P on patient for complete details. In brief, Ms. Campbell is a 67-year-old female with a history of dyslipidemia and prediabetes. She prese nted to the emergency department with chest pressure that had been occurring for the past 2 weeks. I t occurs at rest and is worsened with being supine. She was seen recently by cardiology, as well as by her PCP, without relief to the interventions that were given to her. ECG was normal and troponins were negative. She proceeded to nuclear stress testing that showed a small area of possible ischemi a. She then had coronary CTA that shows no obstructive lesions in her coronary arteries. She is zenaida ng discharged to home with routine followup. PHYSICAL EXAM: VITAL SIGNS: On day of discharge, blood pressure 107/65, heart rate 58, respirations 16, O2 saturation 90% on room air, temp of 97.4 degrees Fahrenheit. GENERAL: She is a pleasant fem janett in no apparent distress. HEENT: Head is normocephalic, atraumatic. Eyes are without scleral ic terus. HEART: Regular rate and rhythm. LUNGS: Clear. RESULTS PENDING: None. DIET: Per previous. ACTIVITY: As tolerated. DISCHARGE MEDICATIONS: Please see med reconciliation for complete details. DISCHARGE INSTRUCTIONS: Follow up with [facility] as scheduled. Follow up with PCP as scheduled. /[id number]/MODL
== END 2018-05-07 15:05 | disposition home or self-care (01) ==
LOC: F2W 21:43
PROVIDERS: ADMIT Internal Medicine; ATTEND Internal Medicine Interventional Cardiology
DX: R07.89 Other chest pain (principal); R93.1 Abnormal findings on diagnostic imaging of heart and coronary circulation; I25.10 Atherosclerotic heart disease of native coronary artery without angina pectoris; E78.5 Hyperlipidemia, unspecified; R73.03 Prediabetes; E03.9 Hypothyroidism, unspecified; Z87.440 Personal history of urinary (tract) infections
CPT/HCPCS: 71046; 75574; 78452; 93005; 93017; A9500; G0378; Q9967; 84484-ER; J2785

== ENCOUNTER → 2018-05-19 | Outpatient (CLI) | payer OTHER | LOC: FIMAGING 09:22 | PROVIDERS: ATTEND Physician Assistant | DX: R07.89 Other chest pain (principal); R10.10 Upper abdominal pain, unspecified; R07.0 Pain in throat ==

== ENCOUNTER → 2018-08-04 | Outpatient (CLI) | payer OTHER | LOC: FIMAGING 10:54 | PROVIDERS: ATTEND Internal Medicine | DX: Z12.31 Encounter for screening mammogram for malignant neoplasm of breast (principal) ==